=== PATIENT | female | born 1990 | race Hispanic/Latino ===

== ENCOUNTER 2020-08-03 15:09 | Emergency (ER) | payer OTHER, SELFPAY ==
[2020-08-03] MEDS ORDERED: ACETAMINOPHEN-CODEINE 300/30MG TAB ONE (15:27)
[2020-08-03] MEDS ORDERED: TETANUS/DIPHTHERIA TOXOID [ADULT] 0.5 ML VIAL IM ONE (15:28)
[2020-08-03] MEDS ORDERED: LIDOCAINE HCL 2% 20ML ONE (16:52)
[2020-08-03] MEDS ORDERED: SODIUM CHLORIDE 0.9% 1000ML 1,000 ML IV ONE (17:40)
[2020-08-03] MEDS ORDERED: CEFAZOLIN SODIUM 1 GM VIAL ONE (19:19)
[2020-08-03] MEDS ORDERED: SODIUM CHLORIDE 0.9% 50 ML IV ONE (19:20)
== END 2020-08-03 19:50 | disposition home or self-care (01) ==
LOC: EDH 15:09
DX: O9A.211 Injury, poisoning and certain other consequences of external causes complicating pregnancy, first trimester (principal); S91.341A Puncture wound with foreign body, right foot, initial encounter; Z3A.01 Less than 8 weeks gestation of pregnancy; W45.0XXA Nail entering through skin, initial encounter; Y93.89 Activity, other specified; Y92.89 Other specified places as the place of occurrence of the external cause; Y99.8 Other external cause status
CPT/HCPCS: 73620 ×2; 76801; 81025; 90471; 90714; 96365; 99285; J0690; J3490; J7030

== ENCOUNTER 2021-04-05 01:05 | Emergency (ER) | payer MEDICAID ==
[~2021-04-05] VITALS: Ht 144.8 cm; Wt 61.2 kg
[2021-04-05 01:07] VITALS: BP 121/74
[2021-04-05] MEDS ORDERED: 0.9%NACL 1000ML 1,000 ML IV ONE (01:30)
[2021-04-05] MEDS ORDERED: ONDANSETRON 4MG INJ IVP ONE (01:30)
[2021-04-05 01:54] LABS: BASOPHILS % (AUTO) 0.2 % (0.0-5.0); EOSINOPHILS % (AUTO) 0.7 % (0.0-8.0); HEMATOCRIT 45.1 % (36-48); LYMPHOCYTES % (AUTO) 17.6 % (21.0-51.0); MEAN CORPUSCULAR HEMOGLOBIN 30.5 pg (27.0-33.0); MEAN CORPUSCULAR VOLUME 92.4 fL (79-99); MONOCYTES % (AUTO) 7.1 % (3.0-13.0); NEUTROPHILS % (AUTO) 74.2 % (40.0-77.0); PLATELET COUNT (AUTO) 262 K/uL (130-400); RED BLOOD CELL COUNT(AUTO) 4.88 MIL/uL (4.00-5.50); RED CELL DISTRIBUTION WIDTH 12.4 % (11.0-15.5); WHITE BLOOD COUNT (AUTO) 8.6 K/uL (4.8-10.8)
[2021-04-05 01:56] LABS: APPEARANCE,URINE Clear (CLEAR); BILIRUBIN,URINE Negative (NEGATIVE); COLOR,URINE Yellow (YELLOW); GLUCOSE, URINE (UA) Negative (NEGATIVE); KETONES,URINE Negative (NEGATIVE); LEUKOCYTE ESTERASE ,URINE Trace (NEGATIVE); NITRATE,URINE Negative (NEGATIVE); OCCULT BLOOD,URINE Negative (NEGATIVE); PH,URINE >=9.0 (5.0-8.0); PROTEIN,URINE POS 1+ mg/dL (NEGATIVE)
[2021-04-05 02:02] LABS: HCG,QUAL RESULT NEGATIVE (NEGATIVE)
[2021-04-05 02:08] LABS: BACTERIA,URINE None Seen /HPF (None Seen); RBC,URINE None Seen /HPF (0-1); WBC,URINE 0-1 /HPF (0-1)
[2021-04-05 02:09] LABS: MUCUS,URINE Few LPF (None Seen); SQUAMOUS EPITHELIAL CELL,UR Moderate /HPF (0-2)
[2021-04-05 02:10] LABS: ALBUMIN 4.1 g/dL (3.5-5.0); BILIRUBIN,TOTAL 0.4 mg/dL (0.2-1.0); CREATININE 0.7 mg/dL (0.5-1.5); POTASSIUM 3.6 mmol/L (3.5-5.1); TOTAL PROTEIN, SERUM 8.1 g/dL (6.0-8.3)
[2021-04-05 02:58] VITALS: BP 103/63
[2021-04-05 03:34] LABS: AMPHET/METH SCREEN,URINE NEGATIVE (NEGATIVE); BARBITURATE SCREEN, URINE NEGATIVE (NEGATIVE); BENZODIAZEPINES SCREEN,URINE NEGATIVE (NEGATIVE); CANNABINOID SCREEN,URINE NEGATIVE (NEGATIVE); COCAINE SCREEN,URINE NEGATIVE (NEGATIVE); OPIATE SCREEN,URINE NEGATIVE (NEGATIVE); PHENCYCLIDINE SCREEN,URINE NEGATIVE (NEGATIVE)
[2021-04-05 03:58] VITALS: BP 108/68
== END 2021-04-05 03:57 | disposition home or self-care (01) ==
LOC: EDH 01:05
DX: F10.129 Alcohol abuse with intoxication, unspecified (principal); R11.2 Nausea with vomiting, unspecified; R51.9 Headache, unspecified; Z79.899 Other long term (current) drug therapy
CPT/HCPCS: 36415; 80053; 80305; 81001; 81025; 83690; 85025; 96361; 96374; 99283; J2405; J7030

== ENCOUNTER 2021-12-03 14:38 | Emergency (ER) | payer BC, MEDICAID ==
[~2021-12-03] VITALS: Ht 147.3 cm; Wt 68.0 kg
[2021-12-03] MEDS ORDERED: 0.9%NACL 1000ML 1,000 ML IV ONE (15:00)
[2021-12-03 15:04] LABS: BASOPHILS % (AUTO) 0.4 % (0.0-5.0); EOSINOPHILS % (AUTO) 1.2 % (0.0-8.0); HEMATOCRIT 42.8 % (36-48); LYMPHOCYTES % (AUTO) 25.4 % (21.0-51.0); MEAN CORPUSCULAR HEMOGLOBIN 30.5 pg (27.0-33.0); MEAN CORPUSCULAR HGB CONC 33.6 g/dL (32.0-36.0); MEAN CORPUSCULAR VOLUME 90.7 fL (79-99); MONOCYTES % (AUTO) 9.4 % (3.0-13.0); NEUTROPHILS % (AUTO) 63.3 % (40.0-77.0); PLATELET COUNT (AUTO) 246 K/uL (130-400); RED BLOOD CELL COUNT(AUTO) 4.72 MIL/uL (4.00-5.50); RED CELL DISTRIBUTION WIDTH 12.2 % (11.0-15.5); WHITE BLOOD COUNT (AUTO) 6.9 K/uL (4.8-10.8)
[2021-12-03 15:13] LABS: CREATININE 0.8 mg/dL (0.5-1.5); POTASSIUM 3.7 mmol/L (3.5-5.1)
[2021-12-03 15:17] LABS: APPEARANCE,URINE Cloudy (CLEAR); BILIRUBIN,URINE Negative (NEGATIVE); COLOR,URINE Yellow (YELLOW); GLUCOSE, URINE (UA) Negative (NEGATIVE); KETONES,URINE Negative (NEGATIVE); LEUKOCYTE ESTERASE ,URINE Large (NEGATIVE); NITRATE,URINE Negative (NEGATIVE); OCCULT BLOOD,URINE Negative (NEGATIVE); PROTEIN,URINE Negative (NEGATIVE)
[2021-12-03 15:18] LABS: ALBUMIN 3.9 g/dL (3.5-5.0); BILIRUBIN,TOTAL 0.3 mg/dL (0.2-1.0); TOTAL PROTEIN, SERUM 7.9 g/dL (6.0-8.3)
[2021-12-03 15:18] LABS: HCG,QUAL RESULT NEGATIVE (NEGATIVE)
[2021-12-03 15:27] LABS: BACTERIA,URINE Few /HPF (None Seen); RBC,URINE None Seen /HPF (0-1); WBC,URINE 0-1 /HPF (0-1)
[2021-12-03 15:28] LABS: AMORPHOUS SEDIMENT,UR Few /LPF (None Seen)
[2021-12-03] MEDS ORDERED: CEPH500B PO (16:01)
[2021-12-03] MEDS ORDERED: MECL-160 PO (16:01)
[2021-12-03 17:24] VITALS: BP 117/79
[2021-12-03] MEDS ORDERED: METR-172 PO (17:26)
[2021-12-03] MEDS ORDERED: CEFTRIAXONE 500MG VIAL IM SCH (17:30)
[2021-12-03] MEDS ORDERED: AZITHROMYCIN 250 MG TABLET PO ONE (17:30)
[2021-12-03] MEDS ORDERED: FLUCONAZOLE 100 MG TAB PO ONE (17:30)
[2021-12-03] MEDS ORDERED: LIDOCAINE HCL-MPF 1% 2ML VIAL ONE (17:39)
== END 2021-12-03 16:13 | disposition home or self-care (01) ==
LOC: EDH 14:38
DX: N39.0 Urinary tract infection, site not specified (principal); B37.3 Candidiasis of vulva and vagina; N76.0 Acute vaginitis
CPT/HCPCS: 36415; 80053; 81001; 81025; 85025; 87088; 87210; 87486; 87797; 93005; 96360; 99284; J7030; J0696; J3490

== ENCOUNTER 2022-04-02 02:36 | Observation (INO) | payer BC, MEDICAID ==
[~2022-04-02] VITALS: Ht 147.3 cm; Wt 68.9 kg
[~2022-04-02 02:36] MED LIST: CEPH500B PO; MECL-160 PO; METR-172 PO
[2022-04-02] MEDS ORDERED: IBUPROFEN 400 MG TABLET ONE (03:05)
[2022-04-02] MEDS ORDERED: IBUPROFEN 800 MG TAB PO ONE (03:30)
[2022-04-02] MEDS ORDERED: MANNITOL 25% 50ML VIAL ONE (04:17)
[2022-04-02] MEDS ORDERED: MANNITOL 25% 50ML VIAL IV SCH ×2 (04:30)
[2022-04-02] MEDS ORDERED: 0.9%NACL 1000ML 2,000 ML IV ONE (04:30)
[2022-04-02 04:47] LABS: BASOPHILS % (AUTO) 0.2 % (0.0-5.0); EOSINOPHILS % (AUTO) 0.3 % (0.0-8.0); HEMATOCRIT 43.3 % (36-48); LYMPHOCYTES % (AUTO) 15.4 % (21.0-51.0); MEAN CORPUSCULAR HGB CONC 33.5 g/dL (32.0-36.0); MEAN CORPUSCULAR VOLUME 89.5 fL (79-99); MONOCYTES % (AUTO) 5.7 % (3.0-13.0); PLATELET COUNT (AUTO) 256 K/uL (130-400); RED BLOOD CELL COUNT(AUTO) 4.84 MIL/uL (4.00-5.50); RED CELL DISTRIBUTION WIDTH 12.3 % (11.0-15.5); WHITE BLOOD COUNT (AUTO) 9.7 K/uL (4.8-10.8)
[2022-04-02 04:54] LABS: CREATININE 0.8 mg/dL (0.5-1.5); POTASSIUM 3.5 mmol/L (3.5-5.1)
[2022-04-02 04:57] LABS: INR 0.93 (0.85-1.15); PROTHROMBIN TIME 10.2 SEC (9.6-11.6)
[2022-04-02 04:59] LABS: ALBUMIN 4.2 g/dL (3.5-5.0); PARTIAL THROMBOPLASTIN TIME 25.9 SEC (26.3-35.5); TOTAL PROTEIN, SERUM 8.4 g/dL (6.0-8.3)
[2022-04-02 05:14] LABS: AMPHET/METH SCREEN,URINE NEGATIVE (NEGATIVE); BARBITURATE SCREEN, URINE NEGATIVE (NEGATIVE); BENZODIAZEPINES SCREEN,URINE NEGATIVE (NEGATIVE); CANNABINOID SCREEN,URINE NEGATIVE (NEGATIVE); COCAINE SCREEN,URINE NEGATIVE (NEGATIVE); PHENCYCLIDINE SCREEN,URINE NEGATIVE (NEGATIVE)
[2022-04-02 09:15] VITALS: BP 118/68
[2022-04-02 11:30] VITALS: BP 104/66
[2022-04-02 15:55] VITALS: BP 106/65
[2022-04-02] MEDS: IBUPROFEN 400 MG TABLET PO PRN (18:53)
[2022-04-02 20:00] VITALS: BP 112/71
[2022-04-03] VITALS: BP 98/62
[2022-04-03 04:00] VITALS: BP 98/66
[2022-04-03] MEDS: IBUPROFEN 400 MG TABLET PO PRN (07:54)
[2022-04-03 08:30] VITALS: BP 107/68
[2022-04-03] MEDS ORDERED: IBUP-2076 PO (08:33)
[2022-04-03 11:00] VITALS: BP 110/79
== END 2022-04-03 15:00 | disposition home or self-care (01) ==
LOC: EDH 02:36 → INTOOBSV 02:37 → EDHIP 02:37 → EEVIPCON 02:37 → 4DH 08:48
PROVIDERS: ADMIT Hospitalist; ATTEND Hospitalist
DX: S02.2XXA Fracture of nasal bones, initial encounter for closed fracture (principal); S00.83XA Contusion of other part of head, initial encounter; H91.90 Unspecified hearing loss, unspecified ear; Z79.899 Other long term (current) drug therapy; Z98.890 Other specified postprocedural states; W19.XXXA Unspecified fall, initial encounter; Y04.0XXA Assault by unarmed brawl or fight, initial encounter; Y92.89 Other specified places as the place of occurrence of the external cause; Y93.89 Activity, other specified; Y99.8 Other external cause status
CPT/HCPCS: 99291; 70450 ×2; 96374; 80053; 80305; 85025; 85610; 85730; 81025; 36415; 72125; 70486; J2150 ×2; G0378; 82948

== ENCOUNTER → 2022-09-22 | Outpatient (CLI) | payer OTHER, MEDICAID ==
[~2022-09-22] MED LIST changes: -CEPH500B PO; +GADOTERATE MEGLUMINE 10 MMOL/20 ML VIAL IV ONE; +IBUP-2076 PO; -MECL-160 PO; -METR-172 PO
== END | disposition home or self-care (01) ==
LOC: RAH 10:43
PROVIDERS: ATTEND Otolaryngology Plastic Surgery within the Head & Neck
DX: H90.3 Sensorineural hearing loss, bilateral (principal)
CPT/HCPCS: 70553; A9575

== ENCOUNTER 2023-08-27 19:01 | Emergency (ER) | payer MEDICAID, OTHER ==
[~2023-08-27] VITALS: Ht 149.9 cm; Wt 71.7 kg
[~2023-08-27 19:01] MED LIST changes: -GADOTERATE MEGLUMINE 10 MMOL/20 ML VIAL IV ONE
[2023-08-27] MEDS ORDERED: AMOX1TAB16 PO (19:47)
[2023-08-27] MEDS: AMOX/CLAV 875/125MG TAB PO ONE (19:51)
[2023-08-27] MEDS: ACETAMINOPHEN 500 MG TABLET PO ONE (19:52)
[2023-08-27] MEDS: TETANUS/DIPHTHERIA TOXOID [ADULT] 0.5 ML VIAL IM ONE (19:54)
[2023-08-27 20:02] VITALS: BP 113/66; PULSE 72; RESP 18; O2SAT 99
== END 2023-08-27 20:01 | disposition home or self-care (01) ==
LOC: EDH 19:01
DX: S71.151A Open bite, right thigh, initial encounter (principal); W54.0XXA Bitten by dog, initial encounter; Y93.89 Activity, other specified; Y92.89 Other specified places as the place of occurrence of the external cause; Y99.8 Other external cause status
CPT/HCPCS: 90471; 90714

== ENCOUNTER 2023-10-15 12:52 | Emergency (ER) | payer OTHER ==
[~2023-10-15] VITALS: Ht 144.8 cm; Wt 62.6 kg
[~2023-10-15 12:52] MED LIST changes: +AMOX1TAB16 PO
[2023-10-15 14:32] LABS: BASOPHILS # (AUTO) 0.02 K/uL (0.00-0.20); BASOPHILS % (AUTO) 0.3 % (0.0-5.0); EOSINOPHILS # (AUTO) 0.11 K/uL (0.00-0.70); EOSINOPHILS % (AUTO) 1.8 % (0.0-8.0); HEMATOCRIT 43.5 % (36-48); IMMATURE GRANULOCYTE ABSOLUTE 0.01 K/uL (0-1); LYMPHOCYTES # (AUTO) 1.7 K/uL (1.0-4.8); LYMPHOCYTES % (AUTO) 28.1 % (21.0-51.0); MEAN CORPUSCULAR HEMOGLOBIN 30.3 pg (27.0-33.0); MEAN CORPUSCULAR HGB CONC 33.3 g/dL (32.0-36.0); MEAN CORPUSCULAR VOLUME 90.8 fL (79-99); MONOCYTES # (AUTO) 0.5 K/uL (0.1-1.0); MONOCYTES % (AUTO) 7.7 % (3.0-13.0); NEUTROPHILS # (AUTO) 3.8 K/uL (1.8-7.7); NEUTROPHILS % (AUTO) 61.9 % (40.0-77.0); PLATELET COUNT (AUTO) 260 K/uL (130-400); RED BLOOD CELL COUNT(AUTO) 4.79 MIL/uL (4.00-5.50); RED CELL DISTRIBUTION WIDTH 12.8 % (11.0-15.5); WHITE BLOOD COUNT (AUTO) 6.1 K/uL (4.8-10.8)
[2023-10-15 14:33] LABS: APPEARANCE,URINE CLEAR (CLEAR); BILIRUBIN,URINE NEGATIVE (NEGATIVE); COLOR,URINE LIGHT-YELLOW (YELLOW); GLUCOSE, URINE (UA) NEGATIVE (NEGATIVE); KETONES,URINE NEGATIVE (NEGATIVE); LEUKOCYTE ESTERASE ,URINE NEGATIVE Leu/uL (NEGATIVE); NITRATE,URINE NEGATIVE (NEGATIVE); OCCULT BLOOD,URINE NEGATIVE (NEGATIVE); PROTEIN,URINE NEGATIVE (NEGATIVE); UROBILINOGEN,URINE 0.2 mg/dL (0.2-1.0)
[2023-10-15 14:34] LABS: ADD UA MICROSCOPIC NO
[2023-10-15 14:38] LABS: HCG,QUALITATIVE URINE NEGATIVE (NEGATIVE)
[2023-10-15] MEDS: 0.9%NACL 1000ML 1,000 ML IV ONE (14:42)
[2023-10-15] MEDS: ONDANSETRON 4MG INJ IVP ONE (14:42)
[2023-10-15 14:47] LABS: AMPHET/METH SCREEN,URINE NEGATIVE (NEGATIVE); BARBITURATE SCREEN, URINE NEGATIVE (NEGATIVE); BENZODIAZEPINES SCREEN,URINE NEGATIVE (NEGATIVE); CANNABINOID SCREEN,URINE NEGATIVE (NEGATIVE); COCAINE SCREEN,URINE NEGATIVE (NEGATIVE); OPIATE SCREEN,URINE NEGATIVE (NEGATIVE); PHENCYCLIDINE SCREEN,URINE NEGATIVE (NEGATIVE)
[2023-10-15 14:48] LABS: SARS-CoV-2, RNA, NAAT NEGATIVE SARS CoV-2 (NEGATIVE)
[2023-10-15 14:53] LABS: INFLUENZA TYPE A Negative For Type A (NEGATIVE); INFLUENZA TYPE B Negative For Type B (NEGATIVE)
[2023-10-15] MEDS ORDERED: ONDA4TAB10 PO (14:57)
[2023-10-15 15:04] LABS: CREATININE 0.6 mg/dL (0.5-1.0); MAGNESIUM 1.9 mg/dL (1.80-2.40); POTASSIUM 4.3 mmol/L (3.5-5.1)
[2023-10-15 15:28] VITALS: BP 133/78; PULSE 75; RESP 20; O2SAT 99
== END 2023-10-15 15:40 | disposition home or self-care (01) ==
LOC: EDH 12:52
DX: K52.9 Noninfective gastroenteritis and colitis, unspecified (principal); Z79.899 Other long term (current) drug therapy; Z20.822 Contact with and (suspected) exposure to COVID-19
CPT/HCPCS: 99283; 96374; 87635; 83735; 80048; 80305; 85025; 87804 ×2; 81025; 36415; 81003; J7030; J2405

== ENCOUNTER 2024-07-11 17:59 | Emergency (ER) | payer SELFPAY ==
[~2024-07-11] VITALS: Ht 149.9 cm; Wt 71.7 kg
[~2024-07-11 17:59] MED LIST changes: +ONDA-243 PO
[2024-07-11 18:36] LABS: BASOPHILS # (AUTO) 0.03 K/uL (0.00-0.20); BASOPHILS % (AUTO) 0.3 % (0.0-5.0); EOSINOPHILS % (AUTO) 2.3 % (0.0-8.0); HEMATOCRIT 43.5 % (36-48); IMMATURE GRANULOCYTE ABSOLUTE 0.04 K/uL (0-1); LYMPHOCYTES # (AUTO) 2.2 K/uL (1.0-4.8); LYMPHOCYTES % (AUTO) 25.5 % (21.0-51.0); MEAN CORPUSCULAR HEMOGLOBIN 30.6 pg (27.0-33.0); MEAN CORPUSCULAR HGB CONC 32.9 g/dL (32.0-36.0); MEAN CORPUSCULAR VOLUME 93.1 fL (79-99); MONOCYTES # (AUTO) 0.7 K/uL (0.1-1.0); MONOCYTES % (AUTO) 7.7 % (3.0-13.0); NEUTROPHILS # (AUTO) 5.6 K/uL (1.8-7.7); NEUTROPHILS % (AUTO) 63.7 % (40.0-77.0); PLATELET COUNT (AUTO) 285 K/uL (130-400); RED BLOOD CELL COUNT(AUTO) 4.67 MIL/uL (4.00-5.50); RED CELL DISTRIBUTION WIDTH 12.4 % (11.0-15.5); WHITE BLOOD COUNT (AUTO) 8.7 K/uL (4.8-10.8)
[2024-07-11 18:42] LABS: APPEARANCE,URINE CLEAR (CLEAR); BILIRUBIN,URINE NEGATIVE (NEGATIVE); COLOR,URINE LIGHT-YELLOW (YELLOW); GLUCOSE, URINE (UA) NEGATIVE (NEGATIVE); KETONES,URINE NEGATIVE (NEGATIVE); LEUKOCYTE ESTERASE ,URINE 75 Leu/uL (NEGATIVE); NITRATE,URINE NEGATIVE (NEGATIVE); OCCULT BLOOD,URINE SMALL (NEGATIVE); PH,URINE 5.5 (5.0-8.0); PROTEIN,URINE NEGATIVE (NEGATIVE); UROBILINOGEN,URINE 0.2 mg/dL (0.2-1.0)
[2024-07-11 18:49] LABS: CREATININE 0.9 mg/dL (0.5-1.0); POTASSIUM 4.2 mmol/L (3.5-5.1)
[2024-07-11 19:12] LABS: ADD UA MICROSCOPIC YES
[2024-07-11 19:14] LABS: BACTERIA,URINE RARE /HPF (None Seen); MUCUS,URINE RARE LPF (None Seen); SQUAMOUS EPITHELIAL CELL,UR RARE /HPF (0-2)
--- NOTE | 2024-07-11 19:54 | NUR ---
PT ARRIVED FT 1950
[2024-07-11] MEDS: 0.9%NACL 1000ML 1,000 ML IV ONE (20:13)
[2024-07-11] MEDS: cefTRIAXone 1G VIAL IVPB ONE (20:13)
[2024-07-11] MEDS: mecliZINE HCL 25 MG TABLET PO ONE (20:48)
--- NOTE | 2024-07-11 21:27 | HMCIMG ---
Exam: NONCONTRAST CT BRAIN REASON: dizzy. COMPARISON: None. TECHNIQUE: Images are obtained from vertex to the skull base. The exam was performed without IV contrast. FINDINGS: There is normal appearing brain parenchyma. There are no focal mass lesions. There is is no evidence of intracranial hemorrhage or acute stroke. Ventricles and sulci appear normal. Posterior fossa and brainstem structures are unremarkable. Paranasal sinuses and remaining extracranial soft tissues appear normal as well. IMPRESSION: 1. Normal noncontrast CT brain. CT was performed with one or more following dose reduction techniques: automated exposure control, adjustment of the mA and kv according to patient's size, or use of a iterative reconstruction technique.
[2024-07-11] MEDS ORDERED: NITR100C4 PO (23:02)
--- NOTE | 2024-07-11 23:03 | ERN ---
ED Note History of Present Illness Stated Complaint: DIZZY Chief Complaint: Dizzy/Light Headed Time Seen by MD: 18:01 Time Seen by Midlevel: 18:01 Dictation: The patient is a 33-year-old female with no past medical history who presents to the emergency department complaints of dizziness onset 07/10/2024 patient denies any trauma, denies any fevers. Denies any nausea or vomiting. Patient reports she was drinking on [place] and thought it was because of her drinking. Denies every day drinking. No other complaints reported. 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 07/11/24 Ondansetron (Ondansetron Odt) 4 Mg Tab.rapdis, 4 MG PO Q6HPRN PRN for nausea, #15 TAB 0 Refills Prov:JESSE PROCTOR TERRAZZO GRINDER 10/15/23 Amoxicillin/Potassium Clav (Amox Tr-K Clv 875-125 mg Tab) 875 Mg-125 Mg Tablet, 1 EACH PO BID for 7 Days, #14 TAB 0 Refills Prov:DERRICK DOWLING TERRAZZO GRINDER 08/27/23 Ibuprofen (Ibuprofen) 400 Mg Tablet, 400 MG PO Q6H PRN for MILD PAIN (1-3) for 15 Days, #15 TAB Prov:KARYN COLE TERRAZZO GRINDER 04/03/22 Past Medical History Past Medical History: No Pertinent History Surgical History: None Family History: Negative Social History: Negative, Other History: Not Applicable LMP: Jun 28, 2024 : 2 Para: 0 Aborts: 2 Review of System Dictation Constitutional: Negative for fever,chills, and weight loss Eyes: Negative for injury, pain,redness, and discharge ENT: Negative for injury,pain or swelling Cardiovascular: Negative for chest pain, palpitations, and edema Respiratory: Negative for shortness of breath, cough, and wheezing, Abdomen/GI: Negative for abdominal pain, nausea, vomiting, diarrhea, and constipation Back: Negative for injury and pain : Negative for injury, bleeding and discharge MS/Extremity: Negative for injury and deformity Skin: Negative for rash, and discoloration Neuro: Negative for headache, weakness, numbness, tingling, and seizure positive for dizziness Psych: Negative for suicide ideation, homicidal ideation, and hallucinations Initial Vital Sign VS Vital Signs Date Time Temp Pulse Resp B/P (MAP) Pulse Ox O2 Delivery O2 Flow Rate FiO2 07/11/24 18:16 98.1 75 20 112/73 99 Room Air 07/11/24 19:54 0 21 Physical Exam Dictation Vital Signs reviewed General Appearance: Alert, oriented x 3, no acute distress, well developed, nourished. Head and Face: non-traumatic. Eyes: PERRL, pink conjunctivas, eyelid no trauma, anterior chamber with arcus senilis. Ears: Pinnas intact and no signs of trauma or erythema ear canals clear and no discharge TM no erythema Nose: No discharge, no bleeding. Oropharynx: Mouth normal, tongue pink. pharynx clear,no erythema, tonsils no exudates, no abscesses noted, mucous membrane moist Neck: Supple, non-tender, no thyromegaly, no masses, no JVD, no bruits Breast:Deferred Chest:No tenderness, no crepitus, no paradoxical movement, no retractions Lungs:Clear, well-ventilated, symmetric, no rales, no wheezing, no rhonchi, no stridor, good breath sounds bilaterally Heart: Regular rate, regular rhythm, no murmur, no gallops Vascular: no peripheral edema, Abdomen: Soft, positive bowel sounds, nondistended, no guarding, nontender, no rebound, no masses no hepatomegaly, no splenomegaly, no Barr's sign, no hernias. Rectal: Deferred Genital: Deferred Neurological: Normal speech, motor function intact, sensory function intact , no slurred speech, no facial droop, upper extremities equal and strength Musculoskeletal: Neck nontender, full range of motion, back nontender, full range of motion, Extremities: nontender, full range of motion Skin: Color pink, dry, no turgor, no rash, no lacerations, no abrasions, no contusions. Lymphatic: Deferred Results (Laboratory/Radiology) Laboratory/Radiology Laboratory Tests Test 07/11/24 18:20 07/11/24 18:22 07/11/24 21:43 Urine Color LIGHT-YELLOW (YELLOW) Urine Appearance CLEAR (CLEAR) Urine pH 5.5 (5.0-8.0) Urine Specific [place] 1.024 (1.001-1.031) Urine Protein NEGATIVE mg/dL (NEGATIVE) Urine Glucose (UA) NEGATIVE mg/dL (NEGATIVE) Urine Ketones NEGATIVE mg/dL (NEGATIVE) Urine Occult Blood SMALL (NEGATIVE) H Urine Nitrate NEGATIVE (NEGATIVE) Urine Bilirubin NEGATIVE mg/dL (NEGATIVE) Urine Urobilinogen 0.2 mg/dL (0.2-1.0) Urine Leukocyte Esterase 75 Elinor/uL (NEGATIVE) H Urine RBC 2-5 /HPF (0-1) H Urine WBC 2-5 /HPF (0-1) H Urine Squamous Epithelial Cells RARE /HPF (0-2) Urine Bacteria RARE /HPF (None Seen) White Blood Count 8.7 K/uL (4.8-10.8) Red Blood Count 4.67 MIL/uL (4.00-5.50) Hemoglobin 14.3 g/dL (12.0-16.0) Hematocrit 43.5 % (36-48) Mean Corpuscular Volume 93.1 fL (79-99) Mean Corpuscular Hemoglobin 30.6 pg (27.0-33.0) Mean Corpuscular Hemoglobin Concent 32.9 g/dL (32.0-36.0) Red Cell Distribution Width 12.4 % (11.0-15.5) Platelet Count 285 K/uL (130-400) Mean Platelet Volume 10.0 fL (7.5-10.5) Immature Granulocyte % (Auto) 0.5 % (0-1) Neutrophils (%) (Auto) 63.7 % (40.0-77.0) Lymphocytes (%) (Auto) 25.5 % (21.0-51.0) Monocytes (%) (Auto) 7.7 % (3.0-13.0) Eosinophils (%) (Auto) 2.3 % (0.0-8.0) Basophils (%) (Auto) 0.3 % (0.0-5.0) Neutrophils # (Auto) 5.6 K/uL (1.8-7.7) Lymphocytes # (Auto) 2.2 K/uL (1.0-4.8) Monocytes # (Auto) 0.7 K/uL (0.1-1.0) Eosinophils # (Auto) 0.20 K/uL (0.00-0.70) Basophils # (Auto) 0.03 K/uL (0.00-0.20) Absolute Immature Granulocyte (auto 0.04 K/uL (0-1) Nucleated Red Blood Cells 0.0 % (0.0-0.19) Sodium Level 142 mmol/L (136-145) Potassium Level 4.2 mmol/L (3.5-5.1) Chloride Level 104 mmol/L (101-111) Carbon Dioxide Level 33 mmol/L (21-32) H Blood Urea Nitrogen 13 mg/dL (7-18) Creatinine 0.9 mg/dL (0.5-1.0) Glomerular Filtration Rate Calc 87 mL/min (>90) Random Glucose 99 mg/dL (70-105) Total Calcium 9.7 mg/dL (8.5-10.1) Total Creatine Kinase 585 U/L (21-232) *H 455 U/L (21-232) #*H Troponin I High Sensitivity < 4 ng/L (4-50) L Serum Test, Qualitative NEGATIVE (NEGATIVE) REASON: dizzy ORDERING PHYSICIAN: CELSO ZIEGLER PROCEDURE: HEAD WO - CT HEAD/BRAIN W/O CONTRAST Exam: NONCONTRAST CT BRAIN REASON: dizzy. COMPARISON: None. TECHNIQUE: Images are obtained from vertex to the skull base. The exam was performed without IV contrast. FINDINGS: There is normal appearing brain parenchyma. There are no focal mass lesions. There is is no evidence of intracranial hemorrhage or acute stroke. Ventricles and sulci appear normal. Posterior fossa and brainstem structures are unremarkable. Paranasal sinuses and remaining extracranial soft tissues appear normal as well. IMPRESSION: 1. Normal noncontrast CT brain. CT was performed with one or more following dose reduction techniques: automated exposure control, adjustment of the mA and kv according to patient's size, or use of a iterative reconstruction technique. Labs Reviewed?: Yes EKG: (+) rhythm (sinus bradycardia) EKG Comment: EKG 07/11/20241938 ventricular rate 53, regular rate and rhythm, normal sinus rhythm, no STEMI PACs ED Course ED Course Orders Procedure Category Date Status Time Cbc With Differential LAB 07/11/24 Complete 18:14 Troponin I High LAB 07/11/24 Complete Sensitivity 18:14 Urinalysis Profile LAB 07/11/24 Complete 18:14 12 Lead Ekg Tracing- EKG 07/11/24 Resulted Technical 18:14 0.9%Nacl 1000ml (Ns PHA 07/11/24 Complete 1000ml) 18:30 Creatine Kinase, Total LAB 07/11/24 Complete 18:14 Basic Metabolic Panel LAB 07/11/24 Complete 18:14 Testing, LAB 07/11/24 Complete Serum Hcg 18:14 Culture Urine [place] 07/11/24 In Process 19:13 Ceftriaxone 1g Vial PHA 07/11/24 Complete (Rocephine 1g Inj) 19:30 Ct Head/Brain W/O CT 07/11/24 Resulted Contrast 20:28 Meclizine Hcl 25 Mg PHA 07/11/24 Complete (Antivert 25 Mg) 20:30 Creatine Kinase, Total LAB 07/11/24 Complete 21:36 Current Medications Medications (Trade) Dose Ordered Sig/Tran Route PRN Reason Start Time Stop Time Status Last Admin Dose Admin Ceftriaxone Sodium (ROCEphine 1G INJ) 1 gm ONCE ONCE IVPB 07/11/24 19:30 07/11/24 19:38 DC 07/11/24 20:13 Meclizine HCl (ANTIvert 25 mg) 25 mg ONCE ONCE PO 07/11/24 20:30 07/11/24 20:31 DC 07/11/24 20:48 Sodium Chloride 1,000 ml @ 0 mls/hr ONCE ONCE IV 07/11/24 18:30 07/11/24 18:31 DC 07/11/24 20:13 Vital Signs Date Time Temp Pulse Resp B/P (MAP) Pulse Ox O2 Delivery O2 Flow Rate FiO2 07/11/24 23:05 98.1 78 16 115/75 98 Room Air* 0 07/11/24 19:54 98.1 78 16 112/73 98 Room Air* 0 21 07/11/24 18:16 98.1 75 20 112/73 99 Room Air Medical Decision Making MDM The patient is a 33-year-old female with no past medical history who presents to the emergency department complaints of dizziness onset 07/10/2024 patient denies any trauma, denies any fevers. Denies any nausea or vomiting. Patient reports she was drinking on [place] and thought it was because of her drinking. Denies every day drinking. No other complaints reported. CBC showed no leukocytosis, no anemia, chemistry showed no electrolyte imbalance, GFR of 87, elevated CK level. Patient received IV fluids CK level already trending down. CT unremarkable. Urinalysis positive for leukocyte esterase Patient does report that she works out. Patient instructed to increase fluid intake at home and avoid any strenuous activity. Patient continues in no acute distress will be discharged to follow up with PCP. Differential diagnosis: Dehydration, intracerebral hemorrhage, tachyarrhythmia, bradyarrhythmia, electrolyte imbalance Need for hospitalization: Patient does not meet criteria for hospitalization. There are no social concerns with this patient. DX & DISP Disposition: Discharge Departure Impression: Primary Impression: Dizziness Additional Impressions: UTI (urinary tract infection), Elevated creatine k inase Condition: Stable Scripts Nitrofurantoin Monohyd/M-Cryst (Macrobid 100 mg Capsule) 100 Mg Capsule 1 CAP PO BID for 5 Days, #10 CAP 0 Refills Prov: CELSO ZIEGLER 07/11/24 Additional Instructions: Please increase fluid intake at home. Avoid any strenuous activity. Follow up with your primary doctor in 1-2 days. If symptoms worsen please return to ER. FOLLOW-UP WITH PRIMARY CARE PROVIDER IN 1 TO 2 DAYS. TAKE MEDICATIONS DIRECTED HERE IN THE EMERGENCY ROOM. OKAY TO CONTINUE HOME MEDICATIONS UNLESS OTHERWISE DISCUSSED DURING YOUR VISIT IN THE EMERGENCY ROOM TODAY. RETURN TO YOUR NEAREST EMERGENCY ROOM IF SYMPTOMS WORSEN OR IF THERE IS NO IMPROVEMENT. CALL 911 IF YOU NEED IMMEDIATE ASSISTANCE. TAKE TYLENOL OR MOTRIN [id number] NEEDED AND IF NO CONTRAINDICATIONS ARE PRESENT. INCREASE ORAL HYDRATION. A WOUND CULTURE OR URINE CULTURE WAS ORDERED HERE IN THE EMERGENCY ROOM DEPARTMENT PLEASE FOLLOW-UP WITH PRIMARY CARE PROVIDER AND ADVISE THEM TO GET REPEAT PORTS FROM OUR FACILITY. IF YOU HAD ANY FLAKITO WRAP/SPLINTS THAT WERE APPLIED HERE, PLEASE DO NOT REMOVE THEM UNTIL YOU SEE YOUR PRIMARY CARE OR SPECIALTY. Referrals: SELF,REFERRAL (PCP) Time of Disposition: 23:02 I have reviewed the case, and I agree with, Diagnosis and Plan ATTESTATION BY PHYSICIAN I PERFORMED THE SUBSTANTIVE PORTION OF THE VISIT. I HAVE REVIEWED AND PERSONALLY MADE AND APPROVED THE MANAGEMENT PLAN THAT IS DOCUMENTED IN THE NOTE BY MYSELF FOR THE A PP. I ACKNOWLEDGED FOR RESPONSIBILITY FOR THE PATIENT'S MANAGEMENT PLAN. CELSO ZIEGLER Jul 11, 2024 23:03 DARWIN CUI MD Jul 13, 2024 19:39
--- NOTE | 2024-07-11 23:03 | NUR ---
TRANSFERED CARE TO VARINDER BRAY
[2024-07-11 23:05] VITALS: BP 115/75; PULSE 78; RESP 16; TEMP 98.1; O2SAT 98
--- NOTE | 2024-07-12 06:53 | EKG ---
[facility] Test Date: 2024-07-11 Test Time: 19:39:41 Pat Name: ENRRIQUE MALDONADO Department: [facility] Room: Gender: F Manager Aviation: [id number] [phone] 1990 Requested By: CELSO ZIEGLER Order Number: [id number] Reading MD: Sj Davison Measurements Intervals [place] Rate: 53 P: 20 ME: 162 QRS: 8 QRSD: 95 T: 5 QT: 445 QTc: 404 Interpretive Statements Sinus bradycardia Atrial premature complex RSR' in V1 Compared to ECG 12/03/2021 15:03:37 Atrial premature complex(es) now present Sinus rhythm no longer present Myocardial infarct finding no longer present Electronically Signed On 07-12-2024 12:21:47 CLERICAL COORDINATOR by Sj Davison Please click the below link to view image of tracing.
== END 2024-07-11 23:13 | disposition home or self-care (01) ==
LOC: EDH 17:59
DX: R42 Dizziness and giddiness (principal); N39.0 Urinary tract infection, site not specified; R74.8 Abnormal levels of other serum enzymes; Z79.899 Other long term (current) drug therapy
CPT/HCPCS: 99285; 96374; 70450; 82550 ×2; 84484; 80048; 84703; 85025; 87086; 81001; 36415; 93005; J7030; J0696